=== PATIENT | female | born 1945 | race Caucasian/White ===

== ENCOUNTER 2022-10-16 19:27 | Emergency (ER) | payer MEDICARE, SELFPAY ==
--- NOTE | ~2022-10-16 | CT_ITS ---
Indication: Trauma fall EXAMINATION: CT facial bones, CT brain, CT cervical spine. This CT examination was performed using dose optimization techniques as appropriate, variously including the following: *Automated exposure control *Adjustment of mA and/or kV according to patient size (this includes techniques or standardized protocols for targeted exams where dose is matched to indication/reason for exam; i.e. extremities or head) *Use of iterative reconstruction technique. Radiation dose 455, 406 183. Axial imaging with coronal and sagittal reformatted images. CT brain; There is no midline shift. There is no mass effect. There is no hemorrhage. The basal cisterns appear patent. The posterior fossa is grossly within normal limits. No extra-axial collection. Soft tissue hematoma seen in the frontal region. There is atrophy here and scattered areas of white matter ischemic change. No evidence for fracture on the bone windows. Cervical spine; Degenerative changes. No acute fracture or dislocation. Facial bones; No fracture seen. CT/CT cervical spine wo IV con IMPRESSION: Multiple studies. No acute finding. Soft tissue hematoma seen anteriorly in the frontal region. No acute finding in the underlying brain. No fracture of the facial bones. No fracture or dislocation of the cervical spine.
--- NOTE | ~2022-10-16 | CT_ITS ---
Indication: Trauma fall EXAMINATION: CT facial bones, CT brain, CT cervical spine. This CT examination was performed using dose optimization techniques as appropriate, variously including the following: *Automated exposure control *Adjustment of mA and/or kV according to patient size (this includes techniques or standardized protocols for targeted exams where dose is matched to indication/reason for exam; i.e. extremities or head) *Use of iterative reconstruction technique. Radiation dose 455, 406 183. Axial imaging with coronal and sagittal reformatted images. CT brain; There is no midline shift. There is no mass effect. There is no hemorrhage. The basal cisterns appear patent. The posterior fossa is grossly within normal limits. No extra-axial collection. Soft tissue hematoma seen in the frontal region. There is atrophy here and scattered areas of white matter ischemic change. No evidence for fracture on the bone windows. Cervical spine; Degenerative changes. No acute fracture or dislocation. Facial bones; No fracture seen. CT/CT facial bones wo IV con IMPRESSION: Multiple studies. No acute finding. Soft tissue hematoma seen anteriorly in the frontal region. No acute finding in the underlying brain. No fracture of the facial bones. No fracture or dislocation of the cervical spine.
--- NOTE | ~2022-10-16 | CT_ITS ---
Indication: Trauma fall EXAMINATION: CT facial bones, CT brain, CT cervical spine. This CT examination was performed using dose optimization techniques as appropriate, variously including the following: *Automated exposure control *Adjustment of mA and/or kV according to patient size (this includes techniques or standardized protocols for targeted exams where dose is matched to indication/reason for exam; i.e. extremities or head) *Use of iterative reconstruction technique. Radiation dose 455, 406 183. Axial imaging with coronal and sagittal reformatted images. CT brain; There is no midline shift. There is no mass effect. There is no hemorrhage. The basal cisterns appear patent. The posterior fossa is grossly within normal limits. No extra-axial collection. Soft tissue hematoma seen in the frontal region. There is atrophy here and scattered areas of white matter ischemic change. No evidence for fracture on the bone windows. Cervical spine; Degenerative changes. No acute fracture or dislocation. Facial bones; No fracture seen. CT/CT head/brain wo IV con IMPRESSION: Multiple studies. No acute finding. Soft tissue hematoma seen anteriorly in the frontal region. No acute finding in the underlying brain. No fracture of the facial bones. No fracture or dislocation of the cervical spine.
[2022-10-16 19:32] VITALS: BP 172/109; BP 196/101; PULSE 81; PULSE 88; RESP 18; TEMP 36.4; O2SAT 97; O2SAT 98; BMI 42.0
--- NOTE | 2022-10-16 19:48 | ED.FALL ---
HPI - Fall General Chief Complaint: Fall Stated Complaint: head lac after fall Time Seen by Provider: 10/16/22 19:47 Source: patient and EMS Mode of arrival: EMS Limitations: no limitations History of Present Illness HPI Narrative: 77-year-old female presents via EMS for evaluation with injury sustained from a fall. Patient has 2 lacerations, to the forehead and below the left eyebrow, and ecchymosis around the left orbit. Patient states that she was carrying a large part of water, fell and hit her face. She does not report prodromal events, and does not report loss of consciousness. She does have some tenderness to the areas of laceration, and round the eye, denies chest pain or pressure, palpitations, abdominal pain, and extremity pain. MD complaint: fall Onset (ago): hour(s) (Within the hour of arrival) Fall from: standing Fall witnessed: no Place fall occurred: home Loss of consciousness: none Prolonged down time: no Symptoms prior to fall: none Context: tripped/slipped Location of injury: face Severity: moderate Severity scale (1-10): 6 Quality: aching Associated symptoms (after fall): headache Related Data Allergies Allergy/AdvReac Type Severity Reaction Status Date / Time erythromycin base Allergy Unknown HIVES Verified 10/16/22 19:42 [ERYTHROMYCIN BASE] Horse/Equine Containing Allergy Unknown HIVES Unverified 06/28/20 16:49 Products [HORSE/EQUINE CONTAINING PRODUCTS] oxycodone [OxyContin] Allergy Unknown Unknown Verified 10/16/22 19:42 Darvocet A500 Allergy Unknown Unknown Uncoded 10/16/22 19:42 Erythromycin Allergy Unknown Unknown Uncoded 10/16/22 19:42 From DARVON Allergy Unknown UNKNOWN Uncoded 06/28/20 16:49 Review of Systems Review of Systems: Constitutional: No Fever, No Chills ENT/Mouth: No Ear Pain, No Hoarseness, No sore throat Eyes: No Eye Pain, positive left eye Swelling, No Redness, No Foreign Body Cardiovascular: No Chest Pain, No SOB Respiratory: No Cough, No Dyspnea Gastrointestinal: No Nausea, No Vomiting, No Diarrhea, No abdominal Pain Genitourinary: No Dysuria, No Hematuria Musculoskeletal: No joint pain, No Myalgias, No Joint Swelling Skin: Positive laceration to forehead and below left eyebrow, No rash Neuro: No Weakness, No Numbness, No Paresthesias, No Loss of Consciousness, No Dizziness, No Headache Yes all other systems are reviewed and are negative [facility] Past Medical History Attestation statement: The following information was validated with the patient. Source: old records reviewed Social History Social History Smoked in Last 30 Days: No Use of substances other than those prescribed or required for medical reasons: No Advance Directives: Yes Advance Directives Information Provided: No Advance Directives on File: No Physical Exam Vital Signs: Vital Signs: Last Vital Signs Temp 98.2 F 10/16/22 22:00 Pulse 69 10/16/22 22:00 Resp 16 10/16/22 22:00 BP 187/85 H 10/16/22 22:00 Pulse Ox 97 10/16/22 22:00 O2 Del Method 10/16/22 22:00 BMI result Body Mass Index 42.0 Appearance: Alert. Oriented X3. Mild distress. Eyes: Pupils equal, round and reactive to light. No pain on extraocular movements. No nystagmus. No hyphema or globe rupture. No indication of entrapment. ENT: Pharynx normal. Tympanic membranes bilaterally intact. Neck: Normal inspection. Neck supple. No vertebral tenderness or step-offs. CVS: Normal heart rate and rhythm. Pulses normal. Respiratory: No respiratory distress. Breath sounds normal. Abdomen: Soft and nontender. Skin: 2 cm laceration below the left lateral eyebrow, 0.5 cm laceration to the mid forehead. Extremities: No lower extremity edema. Gait is well balanced well coordinated. Neuro: No motor deficit. No sensory deficit. Cranial nerves 2-12 intact. Course Course Course Narrative: 77-year-old female presents for injury sustained from a fall. States that she was walking with a large pot of water, slipped, and hit her face on an unknown object. Patient does not report losing consciousness, Nany coma Scale 15. Physical exam indicates ecchymosis to the mid forehead radiating to the left orbit, with laceration to the mid forehead and left lateral lower eyebrow. Will order CT scan of head and cervical spine. 21:30 CTs cervical spine face and head negative for acute findings. Plan of care is to suture lacerations. 22:01 patient tolerated procedure well, plan of care is to have patient follow-up with primary care physician for post concussive protocol. Return in 5-7 days for facial suture removal. Patient understands signs and symptoms indicating infection and agrees to return for further evaluation of post concussive symptoms worsen. Patient does not have an established primary care, will refer to Dr. Wilson at [facility]. Medications Administered Discontinued Medications Generic Name Dose Route Start Last Admin Trade Name Freq PRN Reason Stop Dose Admin Diphtheria/Tetanus/Acell Pertussis 0.5 ml 10/16/22 19:48 10/16/22 20:28 Diphth,Pertus(Acell),Tet Adult 0.5 Ml Syringe IM 10/16/22 19:49 0.5 ml .ONCE ONE Administration Lidocaine HCl 4 ml 10/16/22 21:20 10/16/22 21:36 Lidocaine Hcl 2% 2 Ml Vial SUBCUT 10/16/22 21:21 4 ml ONCE ONE Administration Procedures Laceration Laceration 1: Site: face (Under left eyebrow) Side (If applicable): left Size (cm): 2 Description: linear Depth: simple, single layer Local Anesthetic: lidocaine 1% Amount of anesthesia used (mL): 4 Pre-repair: wound explored, irrigated extensively and deep structures intact Skin layer closed with: nylon Size (cm): 6-0 Number of sutures: 5 Technique: simple, interrupted Laceration 2: Site: face (Mid forehead) Size (cm): 0.5 Description: irregular Depth: simple, single layer Local Anesthetic: lidocaine 1% Amount of anesthesia used (mL): 1 Pre-repair: wound explored and irrigated extensively Skin layer closed with: nylon Size (cm): 6-0 Number of sutures: 3 Technique: simple, interrupted Medical Decision Making Differential Diagnosis Differential Diagnoses: The differential diagnosis associated with the presentation includes Subdural bleed, ICH, orbital fracture, vertebral fracture, concussion Admission/Observation Consideration of admission/observation: Escalation of care including admission/observation considered If acute findings on CT will transfer to acute care facility Independent Interpretation I performed an independent interpretation of an: CT Scan Radiology Impression Discussion of test interpretation with radiology: I have reviewed the radiologist's reading. Radiologist Impression: EXAMINATION: CT facial bones, CT brain, CT cervical spine. This CT examination was performed using dose optimization techniques as appropriate, variously including the following: *Automated exposure control *Adjustment of mA and/or kV according to patient size (this includes techniques or standardized protocols for targeted exams where dose is matched to indication/reason for exam; i.e. extremities or head) *Use of iterative reconstruction technique. Radiation dose 455, 406 183. Axial imaging with coronal and sagittal reformatted images. CT brain; There is no midline shift. There is no mass effect. There is no hemorrhage. The basal cisterns appear patent. The posterior fossa is grossly within normal limits. No extra-axial collection. Soft tissue hematoma seen in the frontal region. There is atrophy here and scattered areas of white matter ischemic change. No evidence for fracture on the bone windows. Cervical spine; Degenerative changes. No acute fracture or dislocation. Facial bones; No fracture seen. CT/CT facial bones wo IV con IMPRESSION: Multiple studies. No acute finding. Soft tissue hematoma seen anteriorly in the frontal region. No acute finding in the underlying brain. ? No fracture of the facial bones. ? No fracture or dislocation of the cervical spine External Record Review External record reviewed: Outpatient record Discharge Plan Discharge Clinical Impression: Concussion without loss of consciousness, Face lacerations Patient Disposition: Home, Self-Care Instructions: Laceration (ED), Concussion (ED), Post Concussion Syndrome (ED) Additional Instructions: You were evaluated for injuries sustained from a fall. You have 2 lacerations on her face, please return in 5-7 days to have sutures removed. CT scan of head, facial bones, and cervical spine are negative for acute findings. Your symptoms are consistent with a concussion. You must follow up with your primary care physician closely for post concussive protocol. Thank you for choosing this emergency department for evaluation. Please follow-up with primary care physician as needed. Return to the emergency department for any new, concerning, or worsening symptoms. Referrals: Sal Wilson MD [Physician] - 5 days (Post concussive protocol, suture removal) Interventions: ED Discharge Assessment Last Done: 10/16/22 22:56 Discharge Date/Time: 10/16/22 22:57
[2022-10-16] MEDS: Diphth,Pertus(ACell),Tet Adult 0.5 ML SYRINGE IM (20:28)
[2022-10-16 20:32] VITALS: BP 191/99; PULSE 81; RESP 16; TEMP 36.8; O2SAT 98
--- NOTE | 2022-10-16 21:36 | PC.NURSE ---
laceration to left head, cleaned. Candy to suture at this time
[2022-10-16 22:00] VITALS: BP 187/85; PULSE 69; RESP 16; TEMP 36.8; O2SAT 97
== END 2022-10-16 22:57 | disposition home or self-care (01) ==
PROVIDERS: Emergency Provider Emergency Medicine
DX: S06.0X0A Concussion without loss of consciousness, initial encounter (principal); S01.81XA Laceration without foreign body of other part of head, initial encounter; S50.312A Abrasion of left elbow, initial encounter; R51.9 Headache, unspecified; M54.2 Cervicalgia; M54.50 Low back pain, unspecified; W01.10XA Fall on same level from slipping, tripping and stumbling with subsequent striking against unspecified object, initial encounter; Y93.9 Activity, unspecified; Y92.9 Unspecified place or not applicable; Y99.9 Unspecified external cause status; Z23 Encounter for immunization; Z79.899 Other long term (current) drug therapy
CPT/HCPCS: 12052; 70450; 70486; 72125; 90471; 90715; 99284

== ENCOUNTER 2023-11-20 16:05 | Emergency (ER) | payer MEDICARE, SELFPAY ==
--- NOTE | ~2023-11-20 | XR_ITS ---
EXAMINATION: XR HIP, LEFT CLINICAL INFORMATION: Hip pain COMPARISON: None available. TECHNIQUE: Two views of the left hip. FINDINGS: No acute fracture or dislocation. Status left post total hip arthroplasty. No evidence of hardware fracture or complication. Foci of heterotopic ossification next to the left hip. Partially imaged right total hip arthroplasty. Moderate degenerative changes of the pubic symphysis with subchondral sclerosis and loss of joint space. XR/XR hip LT min 2V IMPRESSION: 1. Status left post total hip arthroplasty. No evidence of hardware fracture or complication. 2. Moderate degenerative changes of the pubic symphysis with subchondral sclerosis and loss of joint space.
--- NOTE | ~2023-11-20 | XR_ITS ---
EXAMINATION: XR LUMBOSACRAL SPINE CLINICAL INFORMATION: Reason for Exam pain left side COMPARISON: CT abdomen and pelvis 05/31/2019 TECHNIQUE: 3 views of the lumbar spine FINDINGS: 5 nonrib-bearing lumbar-type vertebral bodies. Lateral view is significantly limited by body habitus. There may questionably be an age indeterminate mild T12 wedge compression deformity though difficult to say with certainty given limitations of the exam. Dextroconvex curvature of the lumbar spine. Grade 1 anterolisthesis of L3 on L4. Multilevel degenerative disc disease worse at the thoracolumbar junction where it is advanced. Bilateral hip arthroplasties partially imaged. XR/XR lumbar spine 2-3V IMPRESSION: 1. Lateral view is significantly limited by body habitus. There may questionably be an age indeterminate mild T12 wedge compression deformity though difficult to say with certainty given limitations of the exam. 2. Dextroconvex curvature of the lumbar spine. Grade 1 anterolisthesis of L3 on L4. 3. Multilevel degenerative disc disease worse at the thoracolumbar junction where it is advanced.
--- NOTE | 2023-11-20 16:20 | ED.GENADULT ---
HPI - General Adult General Chief complaint: General Medical Stated complaint: HIP PAIN, NO FALL Time Seen by Provider: 11/20/23 16:19 Source: patient and RN notes reviewed Limitations: no limitations History of Present Illness HPI narrative: 78-year-old female presents for evaluation of left low back and left hip pain. Patient states that she has a history of chronic pain due to arthritis. She is status post bilateral hip replacements. Patient states approximately 3-4 days ago she began having increasing pain without any specific injury. Patient states it has progressively worsened and this afternoon it became significantly worse that she was unable to ambulate and perform her ADLs while at home. Patient's denies any direct trauma. He denies any paresthesias or paralysis. She does confirm that this is the same pain that she has had but is significantly worse. She denies any fevers chills nausea vomiting. No urinary symptoms. She does have prolonged sitting and ambulates in her home with a cane, walker or wheelchair. She tried ibuprofen earlier today without any relief. Due to the fact that she was having continued pain and difficulty with movement she presents via EMS to the emergency department. Related Data Home Medications Medication Instructions Recorded Confirmed omeprazole 20 mg capsule,delayed 20 mg PO DAILY PRN Acid Reflux 11/21/22 11/23/23 release simvastatin 20 mg tablet 20 mg PO BEDTIME 11/21/22 11/23/23 Allergies Allergy/AdvReac Type Severity Reaction Status Date / Time erythromycin base Allergy Unknown HIVES Verified 11/21/22 16:12 [ERYTHROMYCIN BASE] Horse/Equine Containing Allergy Unknown HIVES Unverified 11/21/22 16:12 Products [HORSE/EQUINE CONTAINING PRODUCTS] Darvocet A500 Allergy Unknown Unknown Uncoded 11/21/22 16:12 Erythromycin Allergy Unknown Unknown Uncoded 11/21/22 16:12 From DARVON Allergy Unknown UNKNOWN Uncoded 11/21/22 16:12 Review of Systems Constitutional: Constitutional: Reports no additional constitutional complaints Cardiovascular: Cardiovascular: Denies chest pain and Denies dyspnea Respiratory: Respiratory: Denies dyspnea Gastrointestinal: Gastrointestinal: Denies abdominal pain Musculoskeletal: Musculoskeletal: Reports back pain ( Left lumbar region) Neurologic: Comments: no paresthesias or paralysis. No bowel or bladder incontinence. PMFSH Social History Social History Alcohol intake: current Alcohol intake frequency: holidays/special occasions only Smoked in Last 30 Days: No Use of substances other than those prescribed or required for medical reasons: No Advance Directives: No Advance Directives Information Provided: No Physical Exam ED Vital Signs: Vital Signs - 24 hr 11/22/23 23:22 11/23/23 07:49 Temperature 98.9 F 97.4 F Pulse Rate 76 71 Respiratory Rate 18 20 Blood Pressure 147/86 H 192/89 H Pulse Oximetry 96 93 Oxygen Delivery Method Room Air Room Air BMI result Body Mass Index 42.9 Const General: cooperative, alert, awake and Physically active Resp Effort & Inspection: able to speak in complete sentences Auscultation: clear to auscultation bilaterally Cardio Rhythm: regular rhythm General: No no CVA tenderness Back/Spine/Pelvis Other: No spinous, paraspinous or paravertebral tenderness. There is diffuse tenderness to the left lumbar muscle region with some mild spasm. Slight tenderness along the left SI joint. Candle Cutter is 5/5 bilaterally. There is lymphedema to the knees bilaterally, baseline according to the patient. Of note, there is some excoriation but no overt erythema or secondary signs cellulitis. Decreased range of motion of the lower extremity secondary to pain to the left hip. Dorsiflexion plantar flexors intact. There is diffuse tenderness along the left hip, as well as posterior aspect. Back: No no CVA tenderness Course Course Course Narrative: Prescription monitoring program is not reveal any recent controlled medications. Reevaluation(s) Reevaluation #1: At this time, patient's labs have returned without any acute process. Imaging also without acute process. Patient aware of degenerative changes. Question of T12 fracture however patient denies any history of compression fracture and denies any pain to the area where this is suspected. I have had extensive discussion with the patient regarding disposition. She would like to trial medications in the emergency department as well as ambulatory trial and would ultimately like to be discharged home. No indication for hospital admission at this time and the patient is not favoring rehab placement. I feel that this is reasonable at this time and will reassess after medications for disposition. Time: 19:20 Reevaluation #2: Despite patient being medicated which offered some relief, patient had significant difficulty with ambulation with a walker and assist. Patient confirms that she does not feel safe for discharge home. She is agreeable for further evaluation and possible placement for short-term rehab versus home services. Time: 20:54 Reevaluation #3: November 20, 2023 9:30 p.m. patient seen by Valeria from case management. Patient currently refusing short-term rehab but agrees that discharge home is not safe at this time. Awaiting PT eval. November 21, 2023, 2:00 a.m. patient resting comfortably at this time. Signed out in stable condition pending disposition and further evaluation from PT. 11/21/23 07:03 Physician observation continued, no overnight events reported by nursing. Awaiting PT eval. Pt hypertensive, will attempt to confirm home medications. 11/22/23 6:48 Physician observation continued, no overnight events reported by nursing. PT recommending STR, CM following for disposition. Vital signs stable. 11/23/23--1047--physician observation continued. Vital signs stable. Case management following for STR placement, will continue to monitor for discharge needs -[id number]--patient accepted to [facility] via BLS at 230pm. Medications Administered Generic Name Dose Route Start Last Admin Trade Name Freq PRN Reason Stop Dose Admin Bacitracin 1 appl 11/21/23 21:00 11/23/23 08:32 Bacitracin Oint 0.9 Gm Packet TOPICAL Not Given BID [facility] Protocol Docusate Sodium 100 mg 11/20/23 21:00 11/23/23 08:32 Docusate Sodium 100 Mg Capsule PO 100 mg BID CANDACE Administration Methocarbamol 750 mg 11/20/23 20:55 11/23/23 12:59 Methocarbamol 750 Mg Tablet PO 750 mg QID PRN Administration Muscle Spasm Oxycodone HCl 5 mg 11/20/23 20:55 11/23/23 12:59 Oxycodone Hcl Immed Release 5 Mg Tablet PO 5 mg Q6H PRN Administration Pain, Severe (Pain Scale 7-10) Discontinued Medications Generic Name Dose Route Start Last Admin Trade Name Freq PRN Reason Stop Dose Admin Dexamethasone Sodium Phosphate 8 mg 11/20/23 19:19 11/20/23 19:27 Dexamethasone Sod Phosphate 4 Mg/Ml Vial IVPUSH 11/20/23 19:20 8 mg ONCE ONE Administration Fentanyl 12.5 mcg 11/20/23 19:19 11/20/23 19:31 Fentanyl Citrate/Pf 100 Mcg/2 Ml Vial IVPUSH 11/20/23 19:20 12.5 mcg ONCE ONE Administration Protocol Sodium Chloride 1,000 mls @ 999 mls/hr 11/20/23 19:30 11/20/23 20:57 Ns IV 11/20/23 20:30 Infused .Q1H1M CANDACE Infusion Ondansetron HCl 4 mg 11/20/23 19:19 11/20/23 19:27 Ondansetron Hcl 4 Mg/2 Ml Vial IVPUSH 11/20/23 19:20 4 mg ONCE ONE Administration Sodium Biphosphate/Sodium Phosphate 133 ml 11/22/23 15:17 11/22/23 15:37 Sodium Phosphate,Gentry-Dibasic 133 Ml Enema MS 11/22/23 15:18 133 ml ONCE ONE Administration Medical Decision Making Medical Decision Making [facility] Narrative: 70-year-old female with acute on chronic left hip pain. Concern for the patient ADLs given increased pain. Low suspicion for infectious process. Check labs, UA and x-ray. Differential Diagnosis Differential Diagnoses: The differential diagnosis associated with the presentation includes Disc herniation Lumbar strain Compression fracture Hardware failure Hip fracture Sciatic Lab Data [facility] Lab Attestation statement: I reviewed the patient's lab results. 11/20/23 17:20 11/20/23 17:20 Labs: Lab Results 11/20/23 11/20/23 11/21/23 Range/Units 17:20 20:36 13:28 WBC 7.4 (4.8-10.8) X10*3/uL RBC 5.64 H (4.20-5.50) X10*6/uL Hgb 16.5 H (12.0-16.0) g/dl Hct 48.9 H (37.0-47.0) % MCV 86.7 (80.0-98.0) fL MCH 29.3 (27.0-33.0) pg MCHC 33.7 (31.0-35.0) g/dl RDW 12.9 (11.0-16.0) % Plt Count 358 (160-400) X10*3/uL MPV 8.5 L (9.4-12.3) fL Immature Gran % (Auto) 0.1 (0.0-0.4) % Neut % (Auto) 55.1 (45-73) % Lymph % (Auto) 32.6 (20-40) % Gentry % (Auto) 7.1 (2-11) % Eos % (Auto) 4.6 H (0-4) % Baso % (Auto) 0.5 (0-2) % Lymph # (Auto) 2.4 (1.2-4.9) X10*3/uL Gentry # (Auto) 0.5 (0.1-1.2) X10*3/uL Eos # (Auto) 0.3 (0.0-0.4) X10*3/uL Baso # (Auto) 0.0 (0.0-0.2) X10*3/uL Abs Immat Gran (auto) 0.01 (0.00-0.03) X10*3/uL Absolute Neuts (auto) 4.1 (2.0-8.3) x10*3/uL Absolute Nucleated RBC 0.000 (0.0-0.012) X10*3/uL Nucleated RBC % (auto) 0.0 (0.0-0.2) /100WBC Sodium 136 (135-145) mmol/L Potassium 3.9 (3.3-5.1) mmol/L Chloride 102 (96-108) mmol/L Carbon Dioxide 24 (22-29) mmol/L Anion Gap 14 (12-20) BUN 16 (9-16) mg/dL Creatinine 0.73 (0.5-1.4) mg/dL Estim Creat Clear Calc 78.3 Estimated GFR > 60 Random Glucose 241 H (60-115) mg/dL Calcium 9.6 (8.4-10.2) mg/dL Urine Color Yellow Urine Appearance Clear Urine pH 5.5 (5.0-9.0) Ur Specific [place] 1.015 (1.005-1.025) Urine Protein Negative (Neg-Trace) mg/dL Urine Glucose (UA) 500 H (Negative) mg/dL Urine Ketones 15 (Negative) mg/dL Urine Blood Negative (Negative) Urine Nitrite Negative (Negative) Ur Leukocyte Esterase Negative (Negative) COVID-19 (NNAMDI) Negative (Negative) COVID-19 Clin Com See Note Radiology Impression Discussion of test interpretation with radiology: I have reviewed the radiologist's reading. Radiologist Impression: [place] [address] XRay Report Signed Patient: Zainab Moeller MR#: [id number] : 1945 Acct:[id number] Age/Sex: 78 / F ADM Date: 11/20/23 Loc: HO.ED Attending Dr: Ordering Physician: Romeo Renae Date of Service: 11/20/23 Procedure(s): XR lumbar spine 2-3V Accession Number(s): [id number] cc: Physician,Unknown ; Romeo Renae~ EXAMINATION: XR LUMBOSACRAL SPINE CLINICAL INFORMATION: Reason for Exam pain left side COMPARISON: CT abdomen and pelvis 05/31/2019 TECHNIQUE: 3 views of the lumbar spine FINDINGS: 5 nonrib-bearing lumbar-type vertebral bodies. Lateral view is significantly limited by body habitus. There may questionably be an age indeterminate mild T12 wedge compression deformity though difficult to say with certainty given limitations of the exam. Dextroconvex curvature of the lumbar spine. Grade 1 anterolisthesis of L3 on L4. Multilevel degenerative disc disease worse at the thoracolumbar junction where it is advanced. Bilateral hip arthroplasties partially imaged. XR/XR lumbar spine 2-3V IMPRESSION: 1. Lateral view is significantly limited by body habitus. There may questionably be an age indeterminate mild T12 wedge compression deformity though difficult to say with certainty given limitations of the exam. 2. Dextroconvex curvature of the lumbar spine. Grade 1 anterolisthesis of L3 on L4. 3. Multilevel degenerative disc disease worse at the thoracolumbar junction where it is advanced. Dictated By: Jeniffer Peterson MD Signed By: <Electronically signed by Jeniffer Peterson MD in OV> 11/20/23 1900 DD/ 1658 TD/TT: [employer]: [address] [address] XRay Report Signed Patient: Zainab Moeller MR#: [id number] : 1945 Acct:[id number] Age/Sex: 78 / F ADM Date: 11/20/23 Loc: HO.ED Attending Dr: Ordering Physician: Romeo Renae Date of Service: 11/20/23 Procedure(s): XR hip LT min 2V Accession Number(s): [id number] cc: Physician,Unknown ; Romeo Renae~ EXAMINATION: XR HIP, LEFT CLINICAL INFORMATION: Hip pain COMPARISON: None available. TECHNIQUE: Two views of the left hip. FINDINGS: No acute fracture or dislocation. Status left post total hip arthroplasty. No evidence of hardware fracture or complication. Foci of heterotopic ossification next to the left hip. Partially imaged right total hip arthroplasty. Moderate degenerative changes of the pubic symphysis with subchondral sclerosis and loss of joint space. XR/XR hip LT min 2V IMPRESSION: 1. Status left post total hip arthroplasty. No evidence of hardware fracture or complication. 2. Moderate degenerative changes of the pubic symphysis with subchondral sclerosis and loss of joint space. Dictated By: Jeniffer Peterson MD Signed By: <Electronically signed by Jeniffer Peterson MD in OV> 11/20/23 1857 DD/ 1658 TD/TT: [employer]: External Record Review External record reviewed: Outpatient record Tests considered The following testing was considered but not selected: CT of the lumbar spine and or hips however given the hardware would not be ideal study. Prescription Management I considered prescription management with: Pain Medication Chronic Conditions Patient?s care impacted by: Diabetes Discharge Plan Discharge Clinical Impression: Hip pain Qualifiers: Laterality: left Qualified Code(s): M25.552 - Pain in left hip Patient Disposition: Still a Patient Prescriptions: No Action omeprazole 20 mg capsule,delayed release(DR/EC) 20 mg PO DAILY PRN (Reason: Acid Reflux) simvastatin 20 mg tablet 20 mg PO BEDTIME Referrals: [facility] [Outside]
[2023-11-20 17:25] LABS: MANUAL DIFF FLAG NO
[2023-11-20 17:28] VITALS: BP 140/80; BP 185/97; PULSE 100; PULSE 77; RESP 16; TEMP 36.9; O2SAT 98; O2SAT 99; BMI 42.9
[2023-11-20 17:28] LABS: Basophils Percent Auto 0.5 % (0-2); Eosinophils Absolute Auto 0.3 X10*3/uL (0.0-0.4); Eosinophils Percent Auto 4.6 % (0-4); Hematocrit 48.9 % (37.0-47.0); Hemoglobin 16.5 g/dl (12.0-16.0); Imm Gran Abs Auto 0.01 X10*3/uL (0.00-0.03); Imm Gran Pct Auto 0.1 % (0.0-0.4); Lymphocytes Absolute Auto 2.4 X10*3/uL (1.2-4.9); Lymphocytes Percent Auto 32.6 % (20-40); Mean Corpuscular HGB Conc 33.7 g/dl (31.0-35.0); Mean Corpuscular Hemoglobin 29.3 pg (27.0-33.0); Mean Corpuscular Volume 86.7 fL (80.0-98.0); Mean Platelet Volume 8.5 fL (9.4-12.3); Monocytes Absolute Auto 0.5 X10*3/uL (0.1-1.2); Monocytes Percent Auto 7.1 % (2-11); Neutrophils Absolute Auto 4.1 x10*3/uL (2.0-8.3); Neutrophils Percent Auto 55.1 % (45-73); Platelet Count 358 X10*3/uL (160-400); Red Blood Count 5.64 X10*6/uL (4.20-5.50); Red Cell Distribution Width 12.9 % (11.0-16.0); White Blood Count 7.4 X10*3/uL (4.8-10.8)
[2023-11-20 17:41] LABS: Anion Gap 14 (12-20); Blood Urea Nitrogen 16 mg/dL (9-16); Calcium 9.6 mg/dL (8.4-10.2); Carbon Dioxide 24 mmol/L (22-29); Chloride 102 mmol/L (96-108); Creatinine Clr Calc Pharmacy 78.3; Estimated Glomerular Filt Rate > 60; Glucose Random 241 mg/dL (60-115); Potassium 3.9 mmol/L (3.3-5.1); Sodium 136 mmol/L (135-145)
[2023-11-20 19:03] VITALS: BP 198/87; PULSE 77; RESP 17; TEMP 36.9; O2SAT 99
[2023-11-20] MEDS: dexAMETHasone sod phosphate 4 MG/ML VIAL 8 MG IVPUSH (19:27)
[2023-11-20] MEDS: 0.9 % Sodium Chloride 1,000 ML 999 ML IV (19:27)
[2023-11-20] MEDS: ondansetron HCL 4 MG/2 ML VIAL IVPUSH (19:27)
[2023-11-20] MEDS: fentaNYL citrate/PF 100 MCG/2 ML VIAL 12.5 MCG IVPUSH (19:31)
[2023-11-20 20:53] LABS: Appearance Urine Clear; Color Urine Yellow; Glucose Urine UA 500 mg/dL (Negative); Leukocyte Esterase Urine Negative (Negative); Nitrite Urine Negative (Negative); PH 5.5 (5.0-9.0); Specific Gravity - Urine 1.015 (1.005-1.025); Urine Blood Negative (Negative); Urine Ketones 15 mg/dL (Negative); Urine Protein Negative (Neg-Trace)
[2023-11-20] MEDS: Docusate Sodium 100 MG CAPSULE PO (21:16)
--- NOTE | 2023-11-20 21:22 | PC.NURSE ---
report given to overflow RN
--- NOTE | 2023-11-20 21:58 | PC.NURSE ---
Pt ca&ox3, no signs of distress. Pt assisted with transfer from ED bed to hospital bed. Plan of care ongoing.
--- NOTE | 2023-11-20 22:09 | MHC.CM.ED ---
Addendum entered by Carole Soriano 11/20/23 22:21: [facility]: Received CM consult from Cas BATEMAN. Pt has worsening hip pain without injury and is having difficulty ambulating, even with a walker. Pt lives alone. Pt is A&Ox3. Independent. Was driving. Cannot drive now d/t pain. Pt has no home services. Has a cane, walker and wheelchair. Pt has a hx of bilateral hip replacements. Pt states her HCP is her daughter, Eda Russell ([phone]) and she lives in [place]. Pt states her HCP is at home. Pt states her PCP is at [facility] in [place]. Pt is adamant that she will not go to [facility], but is agreeable to PT assessment in the morning. Pt is agreeable to Home PT. Pt would like either [place] [facility] or [facility]. Referrals placed pending PT assessment. F2F not yet completed. CM will follow for discharge planning.
[2023-11-21 09:04] VITALS: BP 137/74; PULSE 87; RESP 18; TEMP 36.6; O2SAT 95
[2023-11-21] MEDS: oxyCODONE HCl Immed Release 5 MG TABLET PO ×3 (10:22→22:25)
[2023-11-21] MEDS: Docusate Sodium 100 MG CAPSULE PO ×2 (10:22→22:25)
--- NOTE | 2023-11-21 12:35 | MHC.CM.ED ---
Patient remains in ER overflow. Physical therapy eval completed. Short term rehab is recommended. Met with patient in regards to discharge planning. Patient was previously declining short term rehab. However, now patient is agreeable. List of facilities contracted with patient's insurance provided from [employer]. Patient will provide CM with her 2 top facility choices. Continue to monitor for d/c needs.
[2023-11-21 13:50] LABS: COVID-19 Test Negative (Negative); IDNOW Serial# 08D9AD1C
[2023-11-21 14:00] VITALS: BP 148/65; PULSE 71; RESP 18; TEMP 36.8; O2SAT 95
--- NOTE | 2023-11-21 20:21 | PC.NURSE ---
This RN took over pt care @ 1900. Pt resting quietly in bed. Plan of care ongoing.
--- NOTE | 2023-11-21 22:01 | PC.NURSE ---
Pt not given meds at this time and allowed to sleep. Plan of care ongoing.
--- NOTE | 2023-11-21 22:34 | PC.NURSE ---
Pt medicated per dec. Plan of care ongoing.
[2023-11-21 23:02] VITALS: BP 136/68; PULSE 74; TEMP 36.7; O2SAT 95
--- NOTE | 2023-11-22 00:07 | MHC.EDTECH ---
This tech took over care of patient at 2300,hourly rounds completed,patient has a pure wick in place and is clean and dry, bed alarm on for safety and call saxena in reach
--- NOTE | 2023-11-22 01:50 | MHC.EDTECH ---
Hourly rounds completed,patient is sleeping,and is clean and dry at this time,call saxena in reach
--- NOTE | 2023-11-22 04:15 | PC.NURSE ---
Pt requested and tv shut off. Pt assisted by tech onto the bedside commode. Plan of care ongoing.
[2023-11-22 06:00] VITALS: BP 124/72; PULSE 63; RESP 20; TEMP 36.3; O2SAT 94
[2023-11-22] MEDS: oxyCODONE HCl Immed Release 5 MG TABLET PO ×2 (08:29→18:10)
[2023-11-22] MEDS: Docusate Sodium 100 MG CAPSULE PO ×2 (08:30→20:35)
[2023-11-22] MEDS: Bacitracin Oint 0.9 GM PACKET 1 APPL TOPICAL ×2 (08:30→20:35)
--- NOTE | 2023-11-22 12:04 | MHC.CM.ED ---
Patient remains in Er overflow. [facility] choices: 1) [facility] 2) [facility] not responded. [facility] is able to offer a bed and is in the process of obtaining insurance auth. Continue to monitor for d/c needs.
[2023-11-22 14:00] VITALS: BP 173/72; PULSE 77; RESP 17; TEMP 36.8; O2SAT 93
[2023-11-22] MEDS: Sodium Phosphate,Mono-Dibasic 133 ML ENEMA PR (15:37)
[2023-11-22 23:22] VITALS: BP 147/86; PULSE 76; RESP 18; TEMP 37.2; O2SAT 96
[2023-11-23 07:49] VITALS: BP 192/89; PULSE 71; RESP 20; TEMP 36.3; O2SAT 93
[2023-11-23] MEDS: Docusate Sodium 100 MG CAPSULE PO (08:32)
--- NOTE | 2023-11-23 08:48 | PC.NURSE ---
watching tv in room, offering no complaints. purewick in place, offered to remove and patient declined stating that she has had multiple episodes of incontinence and she prefers this. medicated per the MAR, call saxena within reach
--- NOTE | 2023-11-23 12:49 | PC.NURSE ---
able to stand with walker to use commode, patient had bowel movement. complaining of pain in her legs, requesting PRN medications.
[2023-11-23] MEDS: oxyCODONE HCl Immed Release 5 MG TABLET PO (12:59)
[2023-11-23] MEDS: methocarbamoL 750 MG TABLET PO (12:59)
--- NOTE | 2023-11-23 13:40 | MHC.CM.ED ---
Patient remains in ER overflow. [facility] has obtained insurance auth. Patient can leave at 230pm. Nicole MCDERMOTT booked. Med nec with chart. Patient, Kaylie POPE and Vielka BATEMAN aware. Continue to monitor for d/c needs.
--- NOTE | 2023-11-23 13:43 | PHA.MEDREC ---
Pharmacy Consult ? Medication Reconciliation Pharmacy has completed the medication reconciliation. Patient reported medicaitons. Brittaney Rodriguez, RehanaD
--- NOTE | 2023-11-23 14:48 | PC.NURSE ---
rechecking patient's vital signs prior to discharge, was found to be hypertensive 224/100. both arms/multiple pressures obtained with same results. ems unable to transfer patient to short term rehab at this time, provider notified of blood pressure. no known history of hypertension. denies any pain associated with htn other than her hips.
[2023-11-23 14:49] VITALS: BP 224/100; PULSE 78; RESP 16; O2SAT 96
[2023-11-23 15:39] VITALS: BP 187/86; PULSE 73; RESP 18; TEMP 36.3; O2SAT 94
--- NOTE | 2023-11-23 16:04 | PC.NURSE ---
assumed care at 1500, recheck BP and notified provider. Provider wants to discharge patient with improved BP, CM updated and re-booked transportation. Pt medicated for by previous RN, pt states pain improvment with medication and offering no complaints at this time. Pt updated with plan, report called to facility. safety precautions remain in place.
== END 2023-11-23 19:18 ==
PROVIDERS: Physician Assistant; Registered Nurse Emergency; Emergency Provider Student in an Organized Health Care Education/Training Program
DX: M25.552 Pain in left hip (principal); M54.50 Low back pain, unspecified; Z11.52 Encounter for screening for COVID-19; E11.9 Type 2 diabetes mellitus without complications; I10 Essential (primary) hypertension; Z96.643 Presence of artificial hip joint, bilateral
CPT/HCPCS: 36415; 72100; 73502; 80048; 81003; 85025; 87635; 96361; 96374; 96375; 97162; 99285; J1100; J2405; J3010

== ENCOUNTER 2025-02-14 17:55 | Emergency (ER) | payer MEDICARE, SELFPAY ==
[2025-02-14 18:08] VITALS: BP 173/83; BP 208/110; PULSE 76; PULSE 84; RESP 17; TEMP 36.1; O2SAT 97; BMI 38.6
--- NOTE | 2025-02-14 18:13 | MHC.EDTECH ---
pt was placed on purewick with verbal orders from RN
[2025-02-14 18:14] VITALS: BP 152/75; PULSE 76; RESP 15; O2SAT 98
--- NOTE | 2025-02-14 18:19 | ED.WEAKNESS ---
HPI - Weakness General Chief complaint: Failure to Thrive Stated complaint: fall, leg swelling, bp 212/118 Time Seen by Provider: 02/14/25 17:58 Source: patient and EMS Mode of arrival: EMS Limitations: no limitations History of Present Illness ED Provider: HPI Narrative: Patient's history of fluid retention lives alone brought by EMS for feeling weak almost fell down bleeding or knees to the ground EMS found her very unkept condition very disorganized patient has not taken her medication for a while slid out of the bed landed on her knees with no significant injury Related Data Home Medications ?Medication ?Instructions ?Recorded ?Confirmed omeprazole 20 mg capsule,delayed 20 mg PO DAILY PRN Acid Reflux 11/21/22 11/23/23 release simvastatin 20 mg tablet 20 mg PO BEDTIME 11/21/22 11/23/23 Previous Rx's ?Medication ?Instructions ?Recorded oxycodone 5 mg tablet 5 mg PO Q8H PRN pain (scale score 11/23/23 7-10) 3 days #9 tabs empagliflozin 10 mg tablet 10 mg PO QAM #90 tabs 02/14/25 (Jardiance) losartan 50 mg tablet 50 mg PO DAILY #90 tabs 02/14/25 omeprazole 40 mg capsule,delayed 40 mg PO DAILY #90 caps 02/14/25 release simvastatin 10 mg tablet 10 mg PO BEDTIME #90 tabs 02/14/25 Allergies Allergy/AdvReac Type Severity Reaction Status Date / Time erythromycin base Allergy Unknown HIVES Verified 02/14/25 18:12 [ERYTHROMYCIN BASE] Horse/Equine Containing Allergy Unknown HIVES Verified 02/14/25 18:12 Products [HORSE/EQUINE CONTAINING PRODUCTS] Darvocet A500 Allergy Unknown Unknown Uncoded 11/21/22 16:12 Erythromycin Allergy Unknown Unknown Uncoded 11/21/22 16:12 From DARVON Allergy Unknown UNKNOWN Uncoded 11/21/22 16:12 Review of Systems Review of Systems: Yes all other systems are reviewed and are negative [facility] Past Medical History Medical History (Updated 02/15/25 @ 00:01 by Barrett Rowley) Hyperlipidemia Hypertension Social History Social History Alcohol intake: current Alcohol intake frequency: holidays/special occasions only Advance Directives: No Advance Directives Information Provided: No Physical Exam Vital Signs: Vital Signs: Last Vital Signs Temp 98.0 F 02/14/25 22:16 Pulse 76 02/14/25 22:16 Resp 15 02/14/25 22:16 BP 152/75 H 02/14/25 22:16 Pulse Ox 98 02/14/25 22:16 O2 Del Method Room Air 02/14/25 22:16 BMI result Body Mass Index 38.6 Appearance: Alert. Oriented X3. No acute distress. Eyes: PERRLA, No Nystagmus ENT: Pharynx normal. Oral Mucosa moist Neck: Normal inspection. Neck supple. CVS: Normal heart rate and rhythm. Pulses normal. Respiratory: No respiratory distress. Equal air entry bilateral, no wheezing/rales/rhonchi Abdomen: Soft and nontender. Bowel sounds are present, no mass palpable, no CVA tenderness Skin: Skin warm and dry. Normal skin color. Normal skin turgor. Extremities: No lower extremity edema. No calf tenderness Neuro: Oriented X 3. No motor deficit. No sensory deficit.No cerebellar signs , cranial nerves II-XII intact Medications Administered Discontinued Medications Generic Name Dose Route Start Last Admin Trade Name Freq PRN Reason Stop Dose Admin Lisinopril 10 mg 02/14/25 22:04 02/14/25 22:08 Lisinopril 10 Mg Tablet PO 02/14/25 22:05 10 mg ONCE ONE Administration Protocol Medical Decision Making Medical Decision Making [facility] Narrative: Case management saw the patient patient can get good support at home and is financially okay ambulatory in the ED understand the importance of taking medication will refill the medications and advised to follow with PCP Differential Diagnosis Differential Diagnoses: The differential diagnosis associated with the presentation includes Lab Data [facility] Lab Attestation statement: I reviewed the patient's lab results. 02/14/25 19:07 02/14/25 19:07 Labs: Lab Results 02/14/25 Range/Units 19:07 WBC 6.6 (4.8-10.8) X10*3/uL RBC 5.08 (4.20-5.50) X10*6/uL Hgb 15.3 (12.0-16.0) g/dl Hct 43.9 (37.0-47.0) % MCV 86.4 (80.0-98.0) fL MCH 30.1 (27.0-33.0) pg MCHC 34.9 (31.0-35.0) g/dl RDW 12.9 (11.0-16.0) % Plt Count 274 (160-400) X10*3/uL MPV 9.2 L (9.4-12.3) fL Immature Gran % (Auto) 0.2 (0.0-0.4) % Neut % (Auto) 53.4 (45-73) % Lymph % (Auto) 34.6 (20-40) % [place] % (Auto) 7.3 (2-11) % Eos % (Auto) 3.7 (0-4) % Baso % (Auto) 0.8 (0-2) % Lymph # (Auto) 2.3 (1.2-4.9) X10*3/uL [place] # (Auto) 0.5 (0.1-1.2) X10*3/uL Eos # (Auto) 0.2 (0.0-0.4) X10*3/uL Baso # (Auto) 0.1 (0.0-0.2) X10*3/uL Abs Immat Gran (auto) 0.01 (0.00-0.03) X10*3/uL Absolute Neuts (auto) 3.5 (2.0-8.3) x10*3/uL Absolute Nucleated RBC 0.000 (0.0-0.012) X10*3/uL Nucleated RBC % (auto) 0.0 (0.0-0.2) /100WBC PT 10.4 L (10.9-12.4) SEC INR 0.9 (0.9-1.1) Sodium 138 (135-145) mmol/L Potassium 4.0 (3.3-5.1) mmol/L Chloride 106 (96-108) mmol/L Carbon Dioxide 24 (22-29) mmol/L Anion Gap 12 (12-20) BUN 29 H (9-16) mg/dL Creatinine 0.83 (0.5-1.4) mg/dL Estim Creat Clear Calc 63.8 Estimated GFR > 60 Random Glucose 233 H (60-115) mg/dL Calcium 8.7 D (8.4-10.2) mg/dL Magnesium 1.8 (1.6-2.6) mg/dL Total Bilirubin 1.1 H (0.0-1.0) mg/dL AST 22 (5-31) U/L ALT 15 (0-31) U/L Alkaline Phosphatase 112 (39-117) U/L Total Protein 6.8 (6.5-8.0) g/dL Albumin 3.7 (3.5-5.0) g/dL Discharge Plan Discharge Clinical Impression: Weakness, Medication refill Patient Disposition: Home, Self-Care Instructions: Weakness (ED), Medicine Refill (ED) Additional Instructions: Drink plenty of fluids Take medication as prescribed for your diabetes and hypertension and high cholesterol Follow with your PCP Prescriptions: New losartan 50 mg tablet 50 mg PO DAILY Qty: 90 0RF omeprazole 40 mg capsule,delayed release(DR/EC) 40 mg PO DAILY Qty: 90 0RF Jardiance 10 mg tablet 10 mg PO QAM Qty: 90 0RF simvastatin 10 mg tablet 10 mg PO BEDTIME Qty: 90 0RF No Action oxycodone 5 mg tablet 5 mg PO Q8H PRN (Reason: pain (scale score 7-10)) 3 Days Qty: 9 0RF Rx Instructions: Partial Fill upon patient request. omeprazole 20 mg capsule,delayed release(DR/EC) 20 mg PO DAILY PRN (Reason: Acid Reflux) simvastatin 20 mg tablet 20 mg PO BEDTIME Interventions: ED Discharge Assessment Last Done: 02/14/25 22:16 Discharge Date/Time: 02/14/25 22:18 Print Language: Frisian
[2025-02-14 19:11] LABS: MANUAL DIFF FLAG NO
[2025-02-14 19:12] LABS: Basophils Absolute Auto 0.1 X10*3/uL (0.0-0.2); Basophils Percent Auto 0.8 % (0-2); Eosinophils Absolute Auto 0.2 X10*3/uL (0.0-0.4); Eosinophils Percent Auto 3.7 % (0-4); Hematocrit 43.9 % (37.0-47.0); Hemoglobin 15.3 g/dl (12.0-16.0); Imm Gran Abs Auto 0.01 X10*3/uL (0.00-0.03); Imm Gran Pct Auto 0.2 % (0.0-0.4); Lymphocytes Absolute Auto 2.3 X10*3/uL (1.2-4.9); Lymphocytes Percent Auto 34.6 % (20-40); Mean Corpuscular HGB Conc 34.9 g/dl (31.0-35.0); Mean Corpuscular Hemoglobin 30.1 pg (27.0-33.0); Mean Corpuscular Volume 86.4 fL (80.0-98.0); Mean Platelet Volume 9.2 fL (9.4-12.3); Monocytes Absolute Auto 0.5 X10*3/uL (0.1-1.2); Monocytes Percent Auto 7.3 % (2-11); Neutrophils Absolute Auto 3.5 x10*3/uL (2.0-8.3); Neutrophils Percent Auto 53.4 % (45-73); Platelet Count 274 X10*3/uL (160-400); Red Blood Count 5.08 X10*6/uL (4.20-5.50); Red Cell Distribution Width 12.9 % (11.0-16.0); White Blood Count 6.6 X10*3/uL (4.8-10.8)
--- NOTE | 2025-02-14 19:12 | MHC.EDTECH ---
crackers, sandwich, and water was given to pt with verbal orders from
[2025-02-14 19:18] LABS: INTERNATIONAL NORM RATIO 0.9 (0.9-1.1); Prothrombin Time 10.4 SEC (10.9-12.4)
--- NOTE | 2025-02-14 19:40 | PC.NURSE ---
Patient presents from via EMS after sliding out of bed onto her knees striking right upper arm. When EMS arrived, house was very disorganized and unkempt with urine/stool noted. Patient lives alone and had difficult pivoting to the EMS stretcher. Patient has also not taken her prescribed medication in approx one year. Patient alert and oriented. Patient morbidly obese. manager file applied and NSR noted. Lungs essentially clear. Respirations even and non-labored. Abdomen large, soft, non-tender with positive bowel sounds. Significant LE edema noted. Prescribed lasix in the past. Incontinence care and bed change provided. Purewick applied. To be evaluated by case management
[2025-02-14 19:44] LABS: Alanine Aminotransferase 15 U/L (0-31); Albumin Level 3.7 g/dL (3.5-5.0); Alkaline Phosphatase 112 U/L (39-117); Anion Gap 12 (12-20); Aspartate Amino Transferase 22 U/L (5-31); Bilirubin Total 1.1 mg/dL (0.0-1.0); Blood Urea Nitrogen 29 mg/dL (9-16); Calcium 8.7 mg/dL (8.4-10.2); Carbon Dioxide 24 mmol/L (22-29); Chloride 106 mmol/L (96-108); Creatinine Clr Calc Pharmacy 63.8; Estimated Glomerular Filt Rate > 60; Glucose Random 233 mg/dL (60-115); Magnesium 1.8 mg/dL (1.6-2.6); Sodium 138 mmol/L (135-145); Total Protein 6.8 g/dL (6.5-8.0)
--- NOTE | 2025-02-14 20:27 | MHC.CM.ED ---
CM met with patient at the request of Dr. Miranda. Pt is A&Ox3. Pt is a good historian. She does not appear confused. She tells CM that she lives alone. She owns a 3 family home, has 2 tenants and should probably evict one for non-payment of rent. She wears glasses, has a rollator and canes, which she does not use and has no services. She tells CM that her daughter Eda Russell ([phone]) is her HCP. It is not on file. Her son, Norm lives in [place] and she does not have contact with him. 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 She says she is non-compliant with self care and medications. She has not seen a doctor in several years. She had a PCP at [facility] in [place], however she cannot remember his name. She chooses not to take her meds. She admits her home is in disarry and she should probably clean it. She admits to probably being depressed, but has not been treated for depression. She has a friend, Al Matthews ([phone]) who she is close with and who lives locally. She no longer drives, as her license has . She can walk to the grocery store, but would rather order take out than cook. She was able to call for help when she slid out of bed today. She denies any injury. She is reluctant to have help. 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 According to her medical record, she was seen in our ED 11/20-11/23/2023 for a fall and was discharged to [facility] for STR. She does not remember this. Dr. Miranda aware of above. CM plan: refer to [facility] File with Elder protective services to assess her home environment Awaiting medical work-up
--- NOTE | 2025-02-14 21:29 | MHC.EDTECH ---
ambulation trial was done by rigo tech and help by ike Gibbs. pt got out of bed and ambulated with little to no assistance. pt had a steady gait throughout and no complaints were made.
[2025-02-14] MEDS: lisinopriL 10 MG TABLET PO (22:08)
[2025-02-14 22:16] VITALS: BP 152/75; PULSE 76; RESP 15; TEMP 36.7; O2SAT 98
== END 2025-02-14 22:18 | disposition home or self-care (01) ==
PROVIDERS: Emergency Provider Internal Medicine
DX: R53.1 Weakness (principal); Z76.0 Encounter for issue of repeat prescription; I10 Essential (primary) hypertension; E78.5 Hyperlipidemia, unspecified; R79.1 Abnormal coagulation profile; Z91.148 Patient's other noncompliance with medication regimen for other reason
CPT/HCPCS: 36415; 80053; 83735; 85025; 85610; 99283; 99285

== ENCOUNTER 2025-07-01 17:57 | Emergency (ER) | payer MEDICARE, SELFPAY ==
--- NOTE | ~2025-07-01 | XR_ITS ---
CLINICAL HISTORY: Fall, Pain 2 view left shoulder Comparison: None provided Findings: No acute displaced fracture or dislocation. Small fragment of the lower margin of the acromion appears old/chronic with sclerosis. Mild superior subluxation of the left glenohumeral joint as can be seen with rotator cuff tendinopathy. Small Hill-Sachs deformity appears old/chronic. [id number] osteoarthritis of the left AC joint and left glenohumeral joint. Low lung volumes with bilateral atelectasis/pneumonitis partially imaged in the [id number]-ozjf. IMPRESSION: 1. No acute fracture of the left shoulder. 2. Osteoarthritis without dislocation. This document has been electronically signed by: Sarthak Mascorro MD on 07/01/2025 21:14:41
[2025-07-01 18:01] VITALS: BP 170/85; PULSE 83; PULSE 87; RESP 19; TEMP 36.9; O2SAT 98; O2SAT 99; BMI 37.1
--- OUTSIDE RECORDS SUMMARY | 2025-07-01 18:33 | XMS_ITS | Clinical Summary ---
Author Organization [facility] ity Address [address] [place] [address] Care Team Providers Care Cake Washer Name Role Phone Physician, No Pcp Primary Care Provider Unavaila ble Allergies Active Allergy Reactions Criticality Noted Date Comments Erythromycin Hives 10/06/2012 Horse Dander 07/06/2019 Horse serum Oxycodone Itching 05/31/2015 Long acting Propoxyphene N-Acetaminophen 012 Medications ascorbic acid (VITAMIN C) 500 mg tablet Take 500 mg by mouth 2 times daily. Active blood glucose ctl high,nml,low solution BLOOD GLUCOSE CALIBRATION (OT ULTRA/FASTTK CNTRL SOLN) SOLUTION Use to calibrate glucometer as directed on the bottle. 9 Active blood-glucose meter (OneTouch Ultra2 Meter) [facility] Use to test fasting blood sugar once daily 9 Active calcium cit/mag/D3/Zn/c op/avril (CALCIUM CITRATE PLUS ORAL) Take by mouth 2 times daily. Active cholecalciferol (VITAMIN D-3) 50 mcg (2,000 unit) capsule Take 1 Cap by mouth daily. Active ubidecarenone (coenzyme Q10) 100 mg tablet Take 1 Cap by mouth. Active CYANOCOBALAMIN, VITAMIN B-12, ORAL Take by mouth. Daily Active empagliflozin (Jardiance) 10 mg tablet Take 10 mg by mouth daily. 2 Active flaxseed oiL 1,000 mg capsule Take 1 Cap by mouth daily. Active fluticasone propionate (FLONASE) 50 mcg/actuation nasal spray 2 Sprays by Each Nare route daily. 7 Active furosemide (LASIX) 40 mg tablet Take 1 Tablet by mouth daily. 4 Active OneTouch Ultra Test test strip Use to test fasting blood sugar once daily 9 Active multivit-min/fe rrous fumarate (MULTI VITAMIN ORAL) Take by mouth. daily Active omeprazole (PriLOSEC) [address] capsule Take 1 Capsule by mouth daily. 2 Active simvastatin (ZOCOR) 20 mg tablet Take 1 Tablet by mouth at bedtime. 2 Active vitamin E acid succinate (vitamin E succinate) 268 mg (400 unit) tablet Take 1 Tab by mouth daily. Active Active Problems Problem Noted Date Diagnosed Date Biliary dyskinesia 10/24/2019 Pure hypercholesterolemia 01/19/2018 Spondylarthrosis 01/19/2018 Morbid obesity ([facility] V24, [facility] V28) 2017 Hyperlipidemia 07/22/2017 Type II diabetes mellitus wi th renal manifestations ([facility] V24, [facility] V28) 11/22/2016 Microalbuminuria 11/22/2016 UPJ obstruction, congenital 11/22/2016 Type II diabetes mellitus wi th neurological manifestations ([facility] V24, [facility] V28) 08/26/2016 Knee joint replacement status 05/31/2015 Bilateral leg edema 03/19/2015 CTS (carpal tunnel syndrome) 11/24/2014 Overview (09/29/2024): Right per EMG in 11/2014 Knee pain, chronic 08/14/2014 HTN (hypertension), benign 10/29/2012 Arthritis of hip 09/27/2012 Immunizations Name Administration Dates Next Due Influenza trivalent, 0.5mL ( Fluzone High-dose) 65yo and older 07/30/2020,07/22/2017 Influenza trivalent, with pr eservative (Fluzone; Afluria) 6mo and older 07/13/2013 Influenza, Unspecified 07/12/2019,08/02/2014 Moderna SARS-CoV-2 COVID-19, mRNA, LNP-S, preservative free 10/09/2021,12/22/2020,11/24/2020 Pneumococcal conjugate 13 va lent (Prevnar 13, PCV13) 2mo and older 10/01/2015 Pneumococcal polysaccharide 23 valent (Pneumovax 23) 2yo and older 10/29/2012 Tdap Tetanus diptheria acell ular pertussis (Boostrix; Adacel) 7yo and older 01/11/2014 Surgical History Surgery Date Site/Laterality Comments HYSTERECTOMY PROCEDURE: HISTORICAL HYSTERECTOMY COLONOSCOPY 12/08/12 PROCEDURE: HISTORICAL COLONOSCOPY; COMMENT: tics, hemorrhoids; repeat in ten yrs (optional) under propofol OTHER SURGICAL HISTORY 01/2013 PROCEDURE: AL ARTHRP ACETBLR/PROX FEM PROSTC AGRFT/ALGRFT; COMMENT: right KNEE SURGERY PROCEDURE: HISTORICAL KNEE SURGERY; COMMENT: left at [place] OTHER SURGICAL HISTORY 04/2013 Left PROCEDURE: AL ARTHRP ACETBLR/PROX FEM PROSTC AGRFT/ALGRFT HEMORRHOID SURGERY 2015 PROCEDURE: DESTRUCTION OF HEMORRHOIDS; COMMENT: with anoplasty Medical History Medical History Date Comments Hemorrhoid DX:Hemorrhoid Type II diabetes mellitus wi th neurological manifestations ([facility] V24, [facility] V28) 08/26/2016 DX:Type II diabetes mellitus with neurological manifestations (HCC) Arthritis of hip 09/27/2012 DX:Arthritis of hip HTN (hypertension), benign 10/29/2012 DX:HT N (hypertension), benign Knee pain, chronic 08/14/2014 DX:Knee pain, chronic CTS (carpal tunnel syndrome) 11/24/2014 DX: CTS (carpal tunnel syndrome); COMMENT: Right per EMG in 11/2014 Bilateral leg edema 03/19/2015 DX:Bilateral leg edema Knee joint replacement status 05/31/2015 DX :Knee joint replacement status UPJ obstruction, congenital 11/22/2016 DX:U PJ obstruction, congenital Microalbuminuria 11/22/2016 DX:Microalbumin uria Type II diabetes mellitus wi th renal manifestations ([facility] V24, [facility] V28) 11/22/2016 DX:Type II diabetes mellitus with renal manifestations (HCC) Social History Tobacco Use Types Packs/Day Years Used Date Smoking Tobacco: Never Smokeless Tobacco: Never Alcohol Use Standard Drinks/Week Comments Yes 0 (1 standard drink = 0.6 oz pur e alcohol) Comments Unknown Sex and Gender Information Value Date Recorded Sex Assigned at Not on file Legal Sex Female 2:19 PM EST Gender Identity Not on file Sexual Orientation Not on file Obstetrics History Last Filed Vital Signs Vital Sign Reading Time Taken Comments Blood Pressure 160/100 06/09/2022 1:02 PM EDT Pulse 78 06/09/2022 1:02 PM EDT Temperature - - Respiratory Rate - - Oxygen Saturation - - Inhaled Oxygen Concentration - - Weight 114 kg (251 lb 3.2 oz) 06/09/2022 1:02 PM EDT Height 162.6 cm (5' 4 ) 06/09/2022 1:02 PM EDT Body Mass Index 43.12 06/09/2022 1:02 PM EDT Plan of Treatment Health Maintenance Due Date Last Done Comments Diabetes: Annual Foot Exam 1955 Diabetes: Annual Retina Eye Exam 1955 Zoster Vaccines (1 of 2) 1995 RSV Immunization Adult Patients (1 - 1-dose 75+ series) 2020 Falls Risk Assessment 09/20/2022 Osteoporosis Screening (Bone Density Screening) 09/20/2022 Social Influencers of Health Screening 09/20/2022 Diabetes: Annual Urine Albumin-Creatinine Ratio (uACR) 09/27/2022 09/23/2019 DTaP,Tdap,and Td Vaccines (2 - Td or Tdap) 01/12/2024 01/11/2014 Diabetes: Blood Sugar Control Test (HGBA1C) 05/24/2024 11/24/2023 Depression Screening 10/12/2024 Diabetes: Annual GFR (Glomerular Filtration Rate) 12/07/2024 12/07/2023 Hypertension/CHF/CAD Annual BMP Blood Test 12/07/2024 12/07/2023 COVID-19 Vaccine ( season) 2025 10/09/2021, 12/22/2020, 11/24/2020 Influenza Vaccine (#1) 2025 , 07/12/2019, 07/22/2017, Additional history exists Cholesterol Screening (Lipid Panel) 04/07/2027 04/07/2022 Hepatitis C Screening Completed 07/13/2013 Pneumococcal Vaccine: 50+ Years Completed 10/01/2015, 10/29/2012 HIB Vaccines Aged Out No longer eligi ble based on patient's age to complete this topic HPV Vaccines Aged Out No longer eligi ble based on patient's age to complete this topic Hepatitis A Vaccines Aged Out No long er eligible based on patient's age to complete this topic Hepatitis B Vaccines Aged Out No long er eligible based on patient's age to complete this topic IPV Vaccines Aged Out No longer eligi ble based on patient's age to complete this topic MMR Vaccines Aged Out No longer eligi ble based on patient's age to complete this topic Meningococcal ACWY Vaccine Aged Out N o longer eligible based on patient's age to complete this topic Meningococcal B Vaccine Aged Out No l onger eligible based on patient's age to complete this topic RSV Immunization Patients Under 20 months Aged Out No longer eligible based on patient's age to complete this topic Varicella Vaccines Aged Out No longer eligible based on patient's age to complete this topic Procedures Procedure Name Priority Date/Time Associated Diagnosis Comments ANNUAL BMP BLOOD TEST Routine 12/07/2023 HEMOGLOBIN A1C Routine 11/24/2023 LIPID PANEL Routine 04/07/2022 URINE ALBUMIN CREATININE RATIO Routine 09/23/2019 HEPATITIS C SCREENING Routine 07/13/2013 from Last 3 Months or Most Recently Relevant to Health Maintenance Results * Annual BMP Blood Test (12/07/2023) Pathologist [facility] Annual BMP Blood Test Abstracted Result [facility] Provider HEALTH MAINTENANCE Final Result * Hemoglobin A1c (11/24/2023) [facility] Hemoglobin A1C 0.0 % Comment:No interpretation Blood Venous blood specimen / Unknown Result [facility] Historical Provider LAB BLOOD ORDERABLES Ailyn l Result * (ABNORMAL) Lipid panel (04/07/2022) [facility] LDL/HDL Ratio 3 0 - 4 Triglycerides 108 0 - 150 mg/dL Cholesterol 219(A) 0 - 200 mg/dL HDL 67 >=40 mg/dL LDL Cholesterol 131(A) 0 - 100 mg/dL Blood Venous blood specimen / Unknown Result [facility] Historical Provider LAB BLOOD ORDERABLES Ailyn l Result * Urine Albumin Creatinine Ratio (09/23/2019) Urine Albumin Creatinine Ratio No interpretation Historical Provider HEALTH MAINTENANCE Final Result * Hepatitis C Screening (07/13/2013) Hepatitis C Screening No interpretation Historical Provider HEALTH MAINTENANCE Final Result from Last 3 Months or Most Recently Relevant to Health Maintenance Advance Directives Documents on File Type Date Recorded 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
--- OUTSIDE RECORDS SUMMARY | 2025-07-01 18:33 | XMS_ITS ---
Author Organization [facility] on Care Team Providers Care Apparel Fashion Designer Name Role Phone Suly Arteaga Unavailable Unavailable Eda Iyer Unavailable Unavailable Brooks Mauricio Unavailable Unavailable Mehreen Charles Unavailable Unavailable Antonia Bryson Unavailable Unavailable Daniele Landis Unavailable Unavailable Allergies and adverse reactions Code CodeSystem Substance Reaction Severity StartDate Concern Status 590812695 SNOMED CT Horse serum proteins Unknown 024 active 4053 RXNORM Erythromycin Unknown 11/23/2023 active Darvocet A500 Unknown 11/23/2023 active Care Team Name Role Address Phone Organization Dates Eda Iyer PCP [address] [place] [address], [id number], [facility] (Office): : [facility] 11/24/2023 - 12/08/2023 Suly Arteaga [address] [place] [address], [id number], [place] (Office): [facility] [place] 11/24/2023 - 12/08/2023 Brooks Mauricio [address] [place] [address], [id number], [place] (Office): [facility] [place] 11/24/2023 - 12/08/2023 Mehreen Charles [address] [place] [address], [id number], [place] (Office): [facility] [place] 11/24/2023 - 12/08/2023 Antonia Bryson [address] [place], [address], [place] (Office): [facility] [place] 11/24/2023 - 12/08/2023 Daniele Landis [address] [place], [address], [place] (Office): [facility] [place] 11/24/2023 - 12/08/2023 Immunizations Immunization Status Vaccine Details Vaccine Code CodeSystem Date Notes Influenza new Influenza, split virus, trivalent, injectable, contains preservative 141 CVX created date: 4 consent date: 4 Educated by Ally Dumont on 11/24/2023 TB 1 Step Mantoux (PPD) completed tuberculin skin test; unspecified formulation lotNumber: [id number] expiry: 10/11/2026 Mfg: [employer] Given 0.1 ml Left Forearm intradermally 98 CVX created date: 4 consent date: 4 administe red date: 4 Educated by Tanya Donnelly RN on 11/25/2023 Pneumococcal Conjugate Vaccine (PCV13) completed pneumococcal conjugate vaccine, 13 valent 133 CVX created date: 4 administe red date: 5 Verified in MIIS. Pneumococcal Polysaccharide Vaccine (PPSV23) completed pneumococcal polysaccharide vaccine, 23 valent 33 CVX created date: 4 administe red date: 3 Verified in MIIS. TDAP( Tetanus/Diptheria /Perutssis) completed tetanus toxoid, reduced diphtheria toxoid, and acellular pertussis vaccine, adsorbed 115 CVX created date: 4 administe red date: 3 Verified in MIIS. SARS-COV-2 (COVID-19) completed SARS-COV-2 (COVID-19) vaccine, mRNA, spike protein, LNP, preservative free, 100 mcg/0.5mL dose or 50 mcg/0.25mL dose lotNumber: [id number] expiry: 12/14/2023 Mfg: Moderna Given 0.1 ml Right Deltoid intramuscularly Step 2 of Multi-step with next step required 207 CVX created date: 4 consent date: administe red date: 1 Educated by Ally Dumont on 11/24/2023 Verified in MIIS. SARS-COV-2 (COVID-19) completed SARS-COV-2 (COVID-19) vaccine, mRNA, spike protein, LNP, preservative free, 100 mcg/0.5mL dose or 50 mcg/0.25mL dose Mfg: Moderna Step 1 of Multi-step with next step required 207 CVX created date: administe red date: 1 Verified in MIIS. Prevnar 20 Pneumococcal conjugate (PCV20) new Pneumococcal conjugate vaccine 20-valent (PCV20), polysaccharide [id number] conjugate, adjuvant, preservative free 216 CVX created date: 4 consent date: 4 Educated by Ally Dumont on 11/24/2023 SARS-COV-2 (COVID-19 BOOSTER) completed SARS-COV-2 (COVID-19) vaccine, mRNA, spike protein, LNP, preservative free, 25 mcg/0.25 mL dose lotNumber: [id number] expiry: 12/14/2023 Mfg: Moderna Given 0.5 ml Left Deltoid intramuscularly 311 CVX created date: 4 consent date: 4 administe red date: 4 Educated by Ally Dumont on 11/24/2023 SARS-COV-2 (COVID-19 BOOSTER) completed SARS-COV-2 (COVID-19) vaccine, mRNA, spike protein, LNP, preservative free, 100 mcg/0.5mL dose or 50 mcg/0.25mL dose Mfg: Moderna Booster #1 207 CVX created date: 4 administe red date: 1 Verified in MIIS. RSV, bivalent, protein subunit RSVpreF, diluent rec new Respiratory syncytial virus (RSV) monoclonal antibody, IgG1k, (nirsevimab-alip), 0.5 mL, neonates and children to 24 months 306 CVX created date: 4 consent date: 4 Educated by Ally Dumont on 11/24/2023 Mental Status Section Date Assessment Total Score Description 12/08/2023 BIMS 15 cognitively int act CAM 0 No delirium ind icated PHQ-9 00 11/29/2023 BIMS 15 cognitively int act CAM 0 No delirium ind icated PHQ-9 03 minimal depress ion Problems Problem # Description Date of onset Resolved Date Code CodeSystem Concern Status 1 BODY MASS INDEX [BMI]40.0-44.9, ADULT 11/23/[address] active 2 CELLULITIS OF RIGHT LOWER LIMB 11/23/[address] active 3 CHRONIC PAIN SYNDROME 11/23/[address] active 4 GASTRO-ESOPHAGEAL REFLUX DISEASE WITHOUT ESOPHAGITIS 11/23/[address] active 5 LYMPHEDEMA, NOT ELSEWHERE CLASSIFIED 11/23/[address] active 6 OTHER SPECIFIED ARTHRITIS, MULTIPLE SITES 11/23/[address] active 7 TYPE 2 DIABETES MELLITUS WITHOUT COMPLICATIONS 11/23/[address] active 8 UNILATERAL PRIMARY OSTEOARTHRITIS, RIGHT HIP 11/23/[address] active Reason for Referral No Reasons for Referral Entered Social History Social History Observation Description Start Date End Date Code Code System Current Smoking Status Tobacco smoking consumption unknown 337184998 SNOMED CT Sex Assigned At Female 1945 [address]-5 [facility] Gender Identity Sexual Orientation Vital Signs Code Code System Vitals Name Values and Units Timing Information 9279-1 LOINC Respiratory Rate Value=18.0 Units=/m in 12/08/2023 8462-4 LOINC Blood Pressure-Diastolic Value=75 Un its=mmHg 12/08/2023 8480-6 LOINC Blood Pressure-Systolic Csfum=660 Un its=mmHg 12/08/2023 8310-5 LOINC Body Temperature Value=97.4 Units= F 12/08/2023 8867-4 [facility] Heart rate Value=71.0 Units=/min 90906-2 [facility] O2 % BldC Oximetry Value=95.0 Units= % 12/08/2023 52784-8 [facility] Pain Level Value=0.0 12/08/2023 2339-0 [facility] Blood Sugar Qdkdt=921.0 Units=mg/dL 12/07/2023 11295-1 LOINC Weight Grvmn=809.0 Units=Lbs 8302-2 [facility] Height Value=64.0 Units=Inches 11/24/2023
--- OUTSIDE RECORDS SUMMARY | 2025-07-01 18:33 | XMS_ITS | Encounter Summary ---
Author Organization [facility] Address [address] [place] [address] Phone Care Team Providers Care Psychometrist Name Role Phone Nupur Smith MD Primary Care Provider [phone] Reason for Referral * Physical Therapy (Routine) - Closed Specialty Diagnoses / Procedures Referred By Contac t Referred To Contact Physical Therapy Diagnoses Encounter for rehabilitation Right Shoulder Procedures Evaluate & Treat System, Provider Not In, PhD [id number] [place] [address] Phone: tel: Referral ID Status Reason Start Date Expiration Date Visits Re quested Visits Authorized [id number] Closed 07/12/2018 07/12/2019 1 1 Encounter Details Date Type Department Care Team (Latest Contact Info) Description 07/12/2018 Transcribe Orders [facility] [address] [place] [phone] Marguerite Vu PA [address] [place] [address] Encounter for rehabilitation (Primary Dx) Social History Tobacco Use Types Packs/Day Years Used Date Smoking Tobacco: Never Assessed Comments Unknown Sex and Gender Information Value Date Recorded Sex Assigned at Not on file Legal Sex Female 10:08 PM EDT Gender Identity Not on file Sexual Orientation Not on file documented as of this encounter Plan of Treatment Scheduled Referrals Name Type Priority Associated Diagnoses Orde r Schedule Ambulatory referral to [facility] Physical Therapy Outpatient Referral Routine Encounter for rehabilitation Ordered: 07/12/2018 documented as of this encounter Visit Diagnoses Diagnosis Encounter for rehabilitation- Primary documented in this encounter Care Teams Psychometrist Relationship Specialty Start Date End Date Nupur Smith MD [address] [place] [address] PCP - General Internal Medicine 07/12/18 documented as of this encounter Additional Source Comments The information contained in this document represents components of the legal health record. It is not the complete legal health record.[facility]
--- OUTSIDE RECORDS SUMMARY | 2025-07-01 18:33 | XMS_ITS | Clinical Summary ---
Author Organization [facility] Address [address] [place] [address] Phone Care Team Providers Care Office Services Clerk Name Role Phone Nupur Smith MD Primary Care Provider [phone] Social History Tobacco Use Types Packs/Day Years Used Date Smoking Tobacco: Never Assessed Education Answer Date Recorded Are you interested in more education? Not on serafin e 02/06/2023 Are you concerned about learning? Not on file 02/06/2023 No 02/06/2023 No 02/06/2023 Digital Access Answer Date Recorded No 03/07/2023 No 03/07/2023 No 03/07/2023 Reliable internet access at home? Not on file 03/07/2023 Device with a working camera? Not on file Comments Unknown Sex and Gender Information Value Date Recorded Sex Assigned at Not on file Legal Sex Female 10:08 PM EDT Gender Identity Not on file Sexual Orientation Not on file Plan of Treatment Health Maintenance Due Date Last Done Comments LIPID PANEL 1945 DEPRESSION SCREENING 1957 SMOKING Hx and SMOKELESS TOBACCO SCREENING 1958 HEPATITIS C SCREENING 1963 ZOSTER VACCINES (1 of 2) 1995 OSTEOPOROSIS SCREENING INITIAL (ONE-TIME) 2010 RSV VACCINE (1 - 1-dose 75+ series) 2020 Adult Td,Tdap Booster 01/12/2024 01/11/2014 INFLUENZA VACCINE (#1) 2025 0, 08/24/2019, 08/09/2018, Additional history exists COVID-19 VACCINE (2 - 2025- season) 2025 11/24/2020 PNEUMOCOCCAL VACCINES (50+ years) Completed 10/01/2015, 10/29/2012 HEPATITIS A VACCINES Aged Out No long er eligible based on patient's age to complete this topic HIB VACCINES Aged Out No longer eligi ble based on patient's age to complete this topic MENINGOCOCCAL VACCINES (ACWY) Aged Out No longer eligible based on patient's age to complete this topic MENINGOCOCCAL VACCINES (B) Aged Out N o longer eligible based on patient's age to complete this topic Medical Devices Not on file Insurance [employer] [address] [place] [address] [place] [address] [place] [address] [place] [phone] MEDICARE REPLACEMENT MEDICARE REPLACEMENT Care Teams Office Services Clerk Relationship Specialty Start Date End Date Nupur Smith MD [address] [place] [address] PCP - General Internal Medicine 07/12/18 Additional Source Comments The information contained in this document represents components of the legal health record. It is not the complete legal health record.[facility]
--- NOTE | 2025-07-01 18:38 | PC.NURSE ---
Pt coming from home, states she rolled out of bed landing on the floor. Denies hitting head. States she was on the floor for hours . Unable to stand. C/o left shoulder pain. Pt arrives to the ED with urine soaked clothes, stool in her shorts. Pt cleaned and clean catch obtained. Waiting for provider
--- NOTE | 2025-07-01 20:48 | ECG_ITS ---
Test Reason : FALL Blood Pressure : */* mmHG Vent. Rate : 73 BPM Atrial Rate : 73 BPM P-R Int : 154 ms QRS Dur : 76 ms QT Int : 410 ms P-R-T Axes : 52 -4 2 degrees QTcB Int : 451 ms Normal sinus rhythm Minimal voltage criteria for LVH, may be normal variant ( R in aVL ) Septal infarct (cited on or before 03-Nov-2012) Abnormal ECG When compared with ECG of 03-Nov-2012 21:14, Nonspecific T wave abnormality no longer evident in Lateral leads Referred By: Sylwia Carpio Electronically Signed By: LILLIAM PIERRE
--- NOTE | 2025-07-01 20:56 | ED.FALL ---
HPI - Fall General Chief Complaint: Fall Stated Complaint: Fall L shoulder pain, +thinners,-LOC, no Collar Time Seen by Provider: 07/01/25 18:06 History of Present Illness HPI Narrative: 79 years old status post fall complaining of pain to the left shoulder. Patient is rolled off from her bed. Denies any head injury. Denies being on any blood thinners. No nausea no vomiting no loss of consciousness. Pain localized to the shoulder. No fever no chills no chest pain or shortness of breath no diaphoresis. Related Data Home Medications ?Medication ?Instructions ?Recorded ?Confirmed omeprazole 20 mg capsule,delayed 20 mg PO DAILY PRN Acid Reflux 11/21/22 11/23/23 release simvastatin 20 mg tablet 20 mg PO BEDTIME 11/21/22 11/23/23 Previous Rx's ?Medication ?Instructions ?Recorded oxycodone 5 mg tablet 5 mg PO Q8H PRN pain (scale score 11/23/23 7-10) 3 days #9 tabs empagliflozin 10 mg tablet 10 mg PO QAM #90 tabs 02/14/25 (Jardiance) losartan 50 mg tablet 50 mg PO DAILY #90 tabs 02/14/25 omeprazole 40 mg capsule,delayed 40 mg PO DAILY #90 caps 02/14/25 release simvastatin 10 mg tablet 10 mg PO BEDTIME #90 tabs 02/14/25 Allergies Allergy/AdvReac Type Severity Reaction Status Date / Time erythromycin base Allergy Unknown HIVES Verified 07/01/25 18:14 (ERYTHROMYCIN BASE) Horse/Equine Containing Allergy Unknown HIVES Verified 07/01/25 18:14 Products (HORSE/EQUINE CONTAINING PRODUCTS) Darvocet A500 Allergy Unknown Unknown Uncoded 07/01/25 18:14 Erythromycin Allergy Unknown Unknown Uncoded 07/01/25 18:14 From DARVON Allergy Unknown UNKNOWN Uncoded 07/01/25 18:14 Review of Systems Review of Systems: Positive pain to the left shoulder Yes all other systems are reviewed and are negative PMFSH Past Medical History Attestation statement: The following information was validated with the patient. Medical History Hyperlipidemia Hypertension Social History Social History Alcohol intake: current Alcohol intake frequency: holidays/special occasions only Advance Directives: No Advance Directives Information Provided: No Do you have a plan to hurt others: No Plan Physical Exam Exam: Exam: Appearance: Alert. Oriented X3. No acute distress. Eyes: Pupils equal, round and reactive to light. ENT: Pharynx normal. Neck: Normal inspection. Neck supple. No lymph nodes noted. No crepitus CVS: Normal heart rate and rhythm. Pulses normal. Normal S1 and S2 Respiratory: No respiratory distress. Breath sounds normal. No Wheezing. No rales Abdomen: Soft and nontender. No rigidity. No distention. good BS x4 Skin: Skin warm and dry. Normal skin color. Normal skin turgor. Extremities: No lower extremity edema. Neurovascular intact to all extremities. No Lacerations. No Rash. Good range of motion in the left shoulder. Sensation over the axillary median radial and ulnar nerve intact. Movement over the shoulder movement over the elbow movement over the wrist intact. No anatomical snuffbox tenderness. Skin intact. Neuro: Oriented X 3. No motor deficit. No sensory deficit. Moving all extermities. No slurred speech Vital Signs: Vital Signs: Last Vital Signs Temp 98.3 F 07/01/25 22:45 Pulse 80 07/01/25 22:45 Resp 16 07/01/25 22:45 BP 174/67 H 07/01/25 22:45 Pulse Ox 97 07/01/25 22:45 O2 Del Method Room Air 07/01/25 22:45 BMI result Body Mass Index 37.1 Medical Decision Making Medical Decision Making MDM Narrative: Patient is status post fall complaining of pain to the shoulder. My interpretation patient's x-ray showed no acute fracture. Patient's CPK is 350 there is no evidence for rhabdo. Patient's white count is 9.1 hemoglobin is 15.5 there is no signs of he anemia. Her electrolytes shows a normal BUN and creatinine. Sugar is 250 consistent with diabetes. My interpretation patient's EKG showed a sinus rhythm heart rate is 80 IN QRS QTC normal no acute ST segment elevation. Patient's fall was mechanical in nature. She is not on blood thinners the hit her head. Ambulated with a walker which is baseline. Will discharge patient home currently in stable condition Differential Diagnosis Differential Diagnoses: The differential diagnosis associated with the presentation includes Shoulder injury, contusion Admission/Observation Consideration of admission/observation: Escalation of care including admission/observation considered Considered admission but given patient's overall well appearance no distress will try to discharge patient home Lab Data MDM Lab Attestation statement: I reviewed the patient's lab results. 07/01/25 21:59 07/01/25 21:59 Labs: Lab Results 07/01/25 Range/Units 21:59 WBC 9.1 (4.8-10.8) X10*3/uL RBC 5.23 (4.20-5.50) X10*6/uL Hgb 15.6 (12.0-16.0) g/dl Hct 46.0 (37.0-47.0) % MCV 88.0 (80.0-98.0) fL MCH 29.8 (27.0-33.0) pg MCHC 33.9 (31.0-35.0) g/dl RDW 14.1 (11.0-16.0) % Plt Count 299 (160-400) X10*3/uL MPV 9.0 L (9.4-12.3) fL Immature Gran % (Auto) 0.3 (0.0-0.4) % Neut % (Auto) 68.4 (45-73) % Lymph % (Auto) 23.8 (20-40) % Vigo % (Auto) 5.9 (2-11) % Eos % (Auto) 1.3 (0-4) % Baso % (Auto) 0.3 (0-2) % Lymph # (Auto) 2.2 (1.2-4.9) X10*3/uL Vigo # (Auto) 0.5 (0.1-1.2) X10*3/uL Eos # (Auto) 0.1 (0.0-0.4) X10*3/uL Baso # (Auto) 0.0 (0.0-0.2) X10*3/uL Abs Immat Gran (auto) 0.03 (0.00-0.03) X10*3/uL Absolute Neuts (auto) 6.2 (2.0-8.3) x10*3/uL Absolute Nucleated RBC 0.000 (0.0-0.012) X10*3/uL Nucleated RBC % (auto) 0.0 (0.0-0.2) /100WBC Sodium 138 (135-145) mmol/L Potassium 4.0 (3.3-5.1) mmol/L Chloride 103 (96-108) mmol/L Carbon Dioxide 27 (22-29) mmol/L Anion Gap 12 (12-20) BUN 17 H (9-16) mg/dL Creatinine 0.67 (0.5-1.4) mg/dL Estim Creat Clear Calc 83.0 Estimated GFR > 60 Random Glucose 250 H (60-115) mg/dL Calcium 9.4 D (8.4-10.2) mg/dL Total Creatine Kinase 352 H (26-140) U/L Independent Interpretation I performed an independent interpretation of an: EKG (Sinus heart rate is 70 IN QRS QTC normal no acute ST segment elevation) Radiology Impression Discussion of test interpretation with radiology: I have reviewed the radiologist's reading. (Shoulder x-ray was negative) External Record Review External record reviewed: Office record Prescription Management I considered prescription management with: Pain Medication Chronic Conditions Patient?s care impacted by: Diabetes Social Determinants Patient?s care significantly limited by Social Determinants of Health including: Problems related to primary support group Discharge Plan Discharge Clinical Impression: Contusion Patient Disposition: Home, Self-Care Instructions: Contusion in Adults (ED) Prescriptions: No Action oxycodone 5 mg tablet 5 mg PO Q8H PRN (Reason: pain (scale score 7-10)) 3 Days Qty: 9 0RF Rx Instructions: Partial Fill upon patient request. losartan 50 mg tablet 50 mg PO DAILY Qty: 90 0RF omeprazole 40 mg capsule,delayed release(DR/EC) 40 mg PO DAILY Qty: 90 0RF Jardiance 10 mg tablet 10 mg PO QAM Qty: 90 0RF simvastatin 10 mg tablet 10 mg PO BEDTIME Qty: 90 0RF omeprazole 20 mg capsule,delayed release(DR/EC) 20 mg PO DAILY PRN (Reason: Acid Reflux) simvastatin 20 mg tablet 20 mg PO BEDTIME Referrals: Physician,Unknown J [Primary Care Provider, Medical] - 3 days Print Language: Polish
[2025-07-01 21:23] VITALS: BP 198/78; PULSE 77
[2025-07-01 21:24] VITALS: BP 198/88; BP 199/85; PULSE 76; PULSE 85
--- NOTE | 2025-07-01 21:29 | PC.NURSE ---
Pt able to ambulate with a walker to the restroom, 1 assist.
[2025-07-01 22:03] LABS: MANUAL DIFF FLAG NO
[2025-07-01 22:07] LABS: Hematocrit 46.0 % (37.0-47.0); Hemoglobin 15.6 g/dl (12.0-16.0); Imm Gran Abs Auto 0.03 X10*3/uL (0.00-0.03); Imm Gran Pct Auto 0.3 % (0.0-0.4); Lymphocytes Absolute Auto 2.2 X10*3/uL (1.2-4.9); Mean Corpuscular HGB Conc 33.9 g/dl (31.0-35.0); Mean Corpuscular Hemoglobin 29.8 pg (27.0-33.0); Mean Corpuscular Volume 88.0 fL (80.0-98.0); NRBC Abs Auto 0.000 X10*3/uL (0.0-0.012); NRBC Pct Auto 0.0 /100WBC (0.0-0.2); Platelet Count 299 X10*3/uL (160-400); Red Blood Count 5.23 X10*6/uL (4.20-5.50); White Blood Count 9.1 X10*3/uL (4.8-10.8)
[2025-07-01 22:28] LABS: Anion Gap 12 (12-20); Blood Urea Nitrogen 17 mg/dL (9-16); Calcium 9.4 mg/dL (8.4-10.2); Carbon Dioxide 27 mmol/L (22-29); Chloride 103 mmol/L (96-108); Creatinine Clr Calc Pharmacy 83.0; Estimated Glomerular Filt Rate > 60; Potassium 4.0 mmol/L (3.3-5.1); Sodium 138 mmol/L (135-145)
[2025-07-01 22:45] VITALS: BP 174/67; PULSE 80; RESP 16; TEMP 36.8; O2SAT 97
--- NOTE | 2025-07-02 00:27 | PC.NURSE ---
Pt medically cleared and discharged. Pt states not having transportation home and not having the keys to get inside. Pt states not wanting to call her tenants to be able to get inside the house at this time of night. Pts emergency contact called with no success as number goes straight to voicemail. Charge nurse made aware. Pt states not wanting to go at this time of night eighter.
--- NOTE | 2025-07-02 07:25 | PC.NURSE ---
Pt confused upon awakening. Could not state the month. Very somnolent. Pt unable to state where she is, despite being told. RN asked if she wanted to go the bathroom, pt stated yes. Pt slowly up to edge of bed, still falling asleep. Asked repeatedly what we were doing next (going to the bathroom). Pt allowed to sleep longer before discussing dishcharge.
[2025-07-02 07:27] VITALS: BP 145/70; PULSE 72; RESP 15; O2SAT 95
--- NOTE | 2025-07-02 12:18 | PC.NURSE ---
Pt answered all the orientation questions incorrectly, but indicated with laughter that she was joking. She did know her address. She reports that she lives with her cat and has been fine on her own for years. She identifies that she has nieghbors that check on her. She ambulated to bathroom with a walker slowly, but without difficulty. Dressed indpendently. She expressed appreciation for ordering a ride home.
[2025-07-02 14:14] VITALS: BP 145/70; PULSE 72; RESP 15; TEMP 36.6; O2SAT 95
== END 2025-07-02 14:16 | disposition home or self-care (01) ==
PROVIDERS: Emergency Provider Emergency Medicine Emergency Medical Services
DX: S40.012A Contusion of left shoulder, initial encounter (principal); W06.XXXA Fall from bed, initial encounter; Y93.9 Activity, unspecified; Y92.9 Unspecified place or not applicable; Y99.9 Unspecified external cause status; M25.512 Pain in left shoulder
CPT/HCPCS: 36415; 73030; 80048; 82550; 85025; 93005; 99284; 99285

== ENCOUNTER → 2025-07-01 20:21 | Outpatient (BNV) | payer MEDICARE, SELFPAY | PROVIDERS: Emergency Provider Emergency Medicine Emergency Medical Services; Visit Provider Radiology Neuroradiology | DX: M25.512 Pain in left shoulder (principal); M19.012 Primary osteoarthritis, left shoulder; W19.XXXA Unspecified fall, initial encounter | CPT/HCPCS: 73030 ==

== ENCOUNTER → 2025-07-01 20:48 | Outpatient (BNV) | payer MEDICARE, SELFPAY | PROVIDERS: Emergency Provider Emergency Medicine Emergency Medical Services; Visit Provider Internal Medicine | DX: I25.2 Old myocardial infarction (principal) | CPT/HCPCS: 93010 ==